=== PATIENT | female | born 1975 | race Caucasian/White ===

== ENCOUNTER 2022-04-30 16:55 | Emergency (ER) | payer OTHER ==
[~2022-04-30] VITALS: Ht 162.6 cm; Wt 60.3 kg
--- NOTE | 2022-04-30 17:09 | NUR ---
PATIENT ARRIVED WITH BP 118/61, HR 113, O2 100% ON ROOM AIR, T 97.7
--- NOTE | 2022-04-30 17:13 | NUR ---
R AC 20 SL ESTABLISHED. BLOOD SAMPLES OBTAINED AND PLACED IN DROP-OFF BOX.
--- NOTE | 2022-04-30 17:29 | NUR ---
accucheck 174
[2022-04-30] MEDS: IV NS 0.9% 1,000 ML BAG IV ONE ×2 (17:30→17:37)
--- NOTE | 2022-04-30 17:31 | NUR ---
PATIENT WITH INSULIN PUMP IN PLACE, ACCUCHECK 174
--- NOTE | 2022-04-30 17:35 | NUR ---
RT at bedside
--- NOTE | 2022-04-30 17:50 | NUR ---
covid swab done sent to lab
[2022-04-30 17:57] LABS: BASOPHILS % (AUTO) 0.1 % (0.0-2.0); HEMATOCRIT 43 % (33-45); HEMOGLOBIN 13.9 g/dL (11.5-14.8); LYMPHOCYTES # (AUTO) 0.6 K/uL (0.8-4.8); LYMPHOCYTES % (AUTO) 5.5 % (20.0-44.0); MEAN CORPUSCULAR HGB CONC 33 g/dl (31.0-36.0); MEAN CORPUSCULAR VOLUME 87 fL (82-100); MONOCYTES # (AUTO) 0.3 K/uL (0.1-1.30); MONOCYTES % (AUTO) 2.8 % (2.0-12.0); NEUTROPHILS # (AUTO) 9.3 K/uL (1.8-8.9); NEUTROPHILS % (AUTO) 91.6 % (43.0-81.0); PLATELET COUNT (AUTO) 389 K/uL (150-450); WHITE BLOOD COUNT (AUTO) 10.1 K/uL (4.3-11.0)
[2022-04-30 18:06] LABS: SITE, VBG Left Radial; VBG COHb 0.3 %; VBG MetHb 0.3 %; VBG O2Hb 97.8 %; VENT MODE, VBG RA
[2022-04-30 18:17] LABS: ALANINE AMINOTRANSFERASE 18 U/L (12-78); ALBUMIN 4.5 g/dL (3.4-5.0); ALKALINE PHOSPHATASE 80 U/L (46-116); ASPARTATE AMINOTRANSFERASE 18 U/L (15-37); BILIRUBIN,DIRECT 0.2 mg/dL (0.0-0.2); CALCIUM, SERUM 9.5 mg/dL (8.5-10.1); CARBON DIOXIDE 17 mmol/L (21-32); CHLORIDE 101 mmol/L (98-107); CREATININE 0.9 mg/dL (0.6-1.3); GLUCOSE 209 mg/dL (74-106); LIPASE 38 U/L (73-393); POTASSIUM 3.5 mmol/L (3.5-5.1); SODIUM SERUM 136 mmol/L (136-145); TOTAL PROTEIN, SERUM 8.3 g/dL (6.4-8.2); UREA NITROGEN, BLOOD 17 mg/dL (7-18)
[2022-04-30 18:51] LABS: BILIRUBIN,URINE NEGATIVE (NEGATIVE); COLOR,URINE YELLOW (YELLOW); LEUKOCYTE ESTERASE ,URINE NEGATIVE (NEGATIVE); NITRITE, URINE NEGATIVE (NEGATIVE); PROTEIN,URINE NEGATIVE (NEGATIVE); UGLUCOSE 250 MG/DL mg/dL (NEGATIVE); UROBILINOGEN,URINE 0.2 EU/dL (0.2)
[2022-04-30 18:57] LABS: BACTERIA,URINE RARE /HPF (None Seen); MUCUS,URINE Few /LPF (None Seen); RBC,URINE 21-50 /HPF (0-2); WBC,URINE 0-2 /HPF (0-3)
--- NOTE | 2022-04-30 19:34 | NUR ---
LAB AT BEDSIDE
[2022-04-30 20:02] LABS: ALCOHOL, BLOOD < 3 mg/dL (0-0); CALCIUM, SERUM 7.7 mg/dL (8.5-10.1); CARBON DIOXIDE 18 mmol/L (21-32); CHLORIDE 109 mmol/L (98-107); CREATININE 0.8 mg/dL (0.6-1.3); GLUCOSE 141 mg/dL (74-106); POTASSIUM 3.5 mmol/L (3.5-5.1); SODIUM SERUM 140 mmol/L (136-145); UREA NITROGEN, BLOOD 15 mg/dL (7-18)
--- NOTE | 2022-04-30 20:35 | NUR ---
IV removed. Catheter intact and site benign. Pressure and 4x4 applied to site. No bleeding noted.
--- NOTE | 2022-04-30 20:35 | NUR ---
Patient discharged to home in stable condition. Written and verbal after care instructions given. Patient verbalizes understanding of instruction.
[2022-04-30 20:36] VITALS: BP 112/52
== END 2022-04-30 20:37 | disposition home or self-care (01) ==
LOC: ER 17:01
DX: R06.82 Tachypnea, not elsewhere classified (principal); Z20.822 Contact with and (suspected) exposure to COVID-19; E10.9 Type 1 diabetes mellitus without complications; Z96.41 Presence of insulin pump (external) (internal); R00.0 Tachycardia, unspecified
CPT/HCPCS: 99291; 96360; 93005; 82803 ×2; 71045; 70450; 85025; 80048 ×2; 87086; 82010; 83690; 80076; 84703; 81001; 36415; 84484; 82962; 84702; 36600; 87426; 80320; J7030; C9803; G0480